=== PATIENT | female | born 1985 | race Two or more races ===

== ENCOUNTER 2023-06-28 14:04 | Emergency (ER) | payer MEDICAID ==
[~2023-06-28] VITALS: Ht 160 cm; Wt 113.0 kg
[2023-06-28] MEDS: acetaminophen 1,000mg/100ml IV 100 ML IV STA (15:53)
[2023-06-28] MEDS ORDERED: IBUP-1984 PO (16:22)
[2023-06-28] MEDS: ibuprofen tablet 400 MG TABLET PO STA (16:32)
[2023-06-28 16:33] VITALS: BP 109/70; PULSE 64; RESP 16; TEMP 98.6; O2SAT 99
== END 2023-06-28 16:35 | disposition home or self-care (01) ==
LOC: EDSEX 14:05 → ER 14:05
DX: S29.011A Strain of muscle and tendon of front wall of thorax, initial encounter (principal); Z79.899 Other long term (current) drug therapy; V89.2XXA Person injured in unspecified motor-vehicle accident, traffic, initial encounter; Y93.89 Activity, other specified; Y92.89 Other specified places as the place of occurrence of the external cause; Y99.8 Other external cause status
CPT/HCPCS: 71101; 93005; 96374; 99283; J0131; 96365; 99284